=== PATIENT | female | born 1985 | race Caucasian/White ===

== ENCOUNTER 2021-08-23 00:31 | Emergency (ER) | payer OTHER ==
[~2021-08-23] VITALS: Ht 165.1 cm; Wt 66.7 kg
--- NOTE | 2021-08-23 01:09 | NUR ---
Patient to ER bed 7 to gown for evaluation. Side rails up.
[2021-08-23 01:10] VITALS: BP_SYST 114
--- NOTE | 2021-08-23 01:15 | NUR ---
Dr. Garcia [facility] for pt eval
--- NOTE | 2021-08-23 01:21 | NUR ---
Pt BIB family to ED with a sensation of "tightness/pressure" about the knee after having taken a physical fitness test 3 to 4 days [employer] []. Mild discomfort with weightbearing. No distal paresthesias or weakness noted. No gross instability while ambulating reported
--- NOTE | 2021-08-23 02:00 | NUR ---
Pt verbalized understanding / return demo on knee brace / crutches usage
[2021-08-23] MEDS ORDERED: IBUPROFEN 600 MG TABLET PO ONE (02:15)
[2021-08-23] MEDS ORDERED: NAPR-686 PO (02:17)
[2021-08-23 02:48] VITALS: BP_SYST 114
--- NOTE | 2021-08-23 02:48 | NUR ---
Patient given written and verbal discharge instructions and verbalizes understanding. ER MD discussed with patient the results and treatment provided. Patient in stable condition. ID arm band removed. Rx of Naproxen given. Patient educated on pain management and to follow up with PMD. Pain Scale 0/10 Opportunity for questions provided and answered. Medication side effect fact sheet provided.
== END 2021-08-23 02:48 | disposition home or self-care (01) ==
LOC: SED 00:31
DX: M23.91 Unspecified internal derangement of right knee (principal)
CPT/HCPCS: 73564; 99283